=== PATIENT | female | born 1995 | race Caucasian/White ===

== ENCOUNTER 2017-02-20 23:41 | Emergency (ER) | payer SELFPAY ==
[2017-02-20 23:41] VITALS: BMI 34.5
[2017-02-21] MEDS ORDERED: Amoxicillin-Clav 875-125 mg Tab PO STA (01:27)
[2017-02-21] MEDS ORDERED: Amoxicillin-Clav 875-125 mg Tab PO ONE (01:33)
--- NOTE | 2017-02-21 01:33 | C.PDOC ---
History Of Present Illness 21 y/o female presents to the ED for evaluation of right ear pain associated with drainage. Patient states her symptoms initially began as ear pain and itchiness. Patient then stuck a hairpin inside her ear and later developed swelling around her neck and inability to open her jaw at night. Patient denies fever, chills, trauma. Time Seen by Provider: 02/21/17 01:17 Chief Complaint (Nursing): ENT Problem History Per: Patient Onset/Duration Of Symptoms: Days Current Symptoms Are (Timing): Still Present Quality (Ear): Pain W/Touch, Swelling, Discharge Past Medical History Vital Signs: Last Vital Signs Temp 98.2 F 02/21/17 01:34 Pulse 89 02/21/17 01:34 Resp 18 02/21/17 01:34 BP 108/69 02/21/17 01:34 Pulse Ox 99 02/21/17 01:34 - Medical History PMH: Anemia Denies: Diabetes, Hepatitis, HIV, HTN, Seizures, Sexually Transmitted Disease - [facility] Procedures DELIVERY OF PRODUCTS OF CONCEPTION, EXTERNAL APPROACH (10/17/15) GROUP PSYCHOTHERAPY (04/19/16) INDIVIDUAL PSYCHOTHERAPY, SUPPORTIVE (04/19/16) MEDICATION MANAGEMENT (04/19/16) Family History: States: Unknown Family Hx - Social History Hx Tobacco Use: No Hx Alcohol Use: No Hx Substance Use: No - Immunization History Hx Tetanus Toxoid Vaccination: No Hx Influenza Vaccination: No Hx Pneumococcal Vaccination: No Physical Exam - Physical Exam Appears: Non-toxic, No Acute Distress Skin: Normal Color, Warm, Dry Head: Atraumatic, Normacephalic, No Other (trismus ) Eye(s): bilateral: Normal Inspection Ear(s): Left: Normal, Right: Other (TM intact. Edematous drainage in external canal. ) Throat: Normal, No Erythema, No Exudate Neck: Normal ROM, Supple Lymphatic: Adenopathy (occipital ) Extremity: Normal ROM, Capillary Refill (less than 2 seconds ) Neurological/Psych: Oriented x3, Normal Speech, Normal Cognition Gait: Steady ED Course And Treatment O2 Sat by Pulse Oximetry: 100 (on RA) Pulse Ox Interpretation: Normal Progress Note: Patient received Augmentin PO and Motrin PO. On reassessment, patient is resting comfortably, showing no signs of distress and is stable for discharge. Patient is advised to follow up with her PMD within 1-2 days for further evaluation. Disposition - Disposition Referrals: [facility] [Outside] Disposition: HOME/ ROUTINE Disposition Time: 01:30 Condition: GOOD Additional Instructions: Follow up with the medical doctor tomorrow without fail. Return if worsened. Prescriptions: Acetaminophen/Codeine [Tylenol/Codeine 300 MG/30 MG] 1 tab PO Q8 PRN #15 tab PRN Reason: Pain, Severe (8-10) Amoxicillin/Clavulanate [Augmentin 875 MG-125 MG] 1 tab PO BID #14 tab Neomycin/Polymyxin/Hydrocortis [Cortisporin Otic Susp] 3 drop TOP TID #1 bottle Instructions: Otitis Externa (ED) Forms: [employer] (Kiswahili) - Clinical Impression Clinical Impression: Otitis externa, Otitis media - PA / DISH MACHINE OPERATOR / Resident Statement MD/DO has reviewed & agrees with the documentation as recorded. - Scribe Statement The provider has reviewed the documentation as recorded by the Scribe (Mimi De La Paz) All medical record entries made by the Scribe were at my direction and personally dictated by me. I have reviewed the chart and agree that the record accurately reflects my personal performance of the history, physical exam, medical decision making, and the department course for this patient. I have also personally directed, reviewed, and agree with the discharge instructions and disposition.
[2017-02-21 01:35] VITALS: BP 108/69; PULSE 89; RESP 18; TEMP 98.2
[2017-02-21 02:39] VITALS: O2SAT 100
== END 2017-02-21 01:45 | disposition home or self-care (01) ==
LOC: C.ER 23:41
DX: H60.91 Unspecified otitis externa, right ear (principal); H66.91 Otitis media, unspecified, right ear

== ENCOUNTER 2017-06-09 17:15 | Emergency (ER) | payer SELFPAY ==
[2017-06-09 17:16] VITALS: BMI 34.5
[2017-06-09 17:42] VITALS: TEMP 98.4
--- NOTE | 2017-06-09 18:38 | C.PDOC ---
History Of Present Illness 21 y/o female presents to the ER complaining of a fever which has been present for 1 week. Patient reports that she has associated sore throat, body aches, headache, and sweats during the night. Of note, the patient's daughter is in the ER for similar symptoms. Time Seen by Provider: 06/09/17 17:37 Chief Complaint (Nursing): Flu-like Symptoms History Per: Patient History/Exam Limitations: no limitations Onset/Duration Of Symptoms: Days Current Symptoms Are (Timing): Still Present Sick Contacts (Context): Family Member(s) (Daughter) Associated Symptoms: Fever, Sore Throat Past Medical History Reviewed: Historical Data, Nursing Documentation, Vital Signs Vital Signs: Last Vital Signs Temp 98.4 F 06/09/17 19:10 Pulse 98 H 06/09/17 19:10 Resp 18 06/09/17 19:10 BP 100/68 06/09/17 19:10 Pulse Ox 97 06/09/17 21:46 - Medical History PMH: Anemia Denies: Diabetes, Hepatitis, HIV, HTN, Seizures, Sexually Transmitted Disease Surgical History: No Surg Hx - [facility] Procedures DELIVERY OF PRODUCTS OF CONCEPTION, EXTERNAL APPROACH (10/17/15) GROUP PSYCHOTHERAPY (04/19/16) INDIVIDUAL PSYCHOTHERAPY, SUPPORTIVE (04/19/16) MEDICATION MANAGEMENT (04/19/16) Family History: States: No Known Family Hx - Social History Hx Tobacco Use: No Hx Alcohol Use: No Hx Substance Use: No - Immunization History Hx Tetanus Toxoid Vaccination: No Hx Influenza Vaccination: No Hx Pneumococcal Vaccination: No Review Of Systems Except As Marked, All Systems Reviewed And Found Negative. Constitutional: Positive for: Fever, Malaise. Negative for: Chills ENT: Positive for: Throat Pain. Negative for: Nose Congestion Neurological: Positive for: Headache Physical Exam - Physical Exam Appears: Non-toxic, No Acute Distress Skin: Normal Color, Warm, No Rash Head: Atraumatic, Normacephalic Eye(s): bilateral: Normal Inspection, PERRL, EOMI Ear(s): Bilateral: Normal Nose: Normal Oral Mucosa: Moist Throat: Normal, No Erythema, No Exudate Neck: Normal ROM, Supple Chest: Symmetrical Cardiovascular: Rhythm Regular, No Friction Rub, No Murmur Respiratory: Normal Breath Sounds, No Accessory Muscle Use, No Wheezing Gastrointestinal/Abdominal: Soft, No Tenderness Back: Normal Inspection, No CVA Tenderness Extremity: Normal ROM, No Swelling Neurological/Psych: Oriented x3, Normal Speech, Normal Cognition, Normal Motor, Normal Sensation Gait: Steady ED Course And Treatment O2 Sat by Pulse Oximetry: 97 (RA) Pulse Ox Interpretation: Normal Medical Decision Making Medical Decision Making: On re-exam, the patient reports improvement of symptoms. Lungs are CTA, heart is RRR, abdomen is soft, non-tender and patient is tolerating PO well. Follow up with the medical doctor within 1-2 days. return if worsened Disposition - Disposition Referrals: Abiola Oliver MD [Staff Provider] - Disposition: HOME/ ROUTINE Disposition Time: 18:45 Condition: GOOD Additional Instructions: Follow up with the medical doctor within 1-2 days. return if worsened Prescriptions: Ibuprofen [Motrin] 1 tab PO TID PRN #30 tab PRN Reason: Pain Loratadine [Claritin] 10 mg PO DAILY #10 tab predniSONE [Prednisone] 10 mg PO BID #10 tab Instructions: Upper Respiratory Infection (ED) Forms: [employer] (Cuban) - Clinical Impression Clinical Impression: Upper respiratory infection - PA / CLINIC OFFICE COORDINATOR / Resident Statement MD/DO has reviewed & agrees with the documentation as recorded. - Scribe Statement The provider has reviewed the documentation as recorded by the Christopher Figueredo Provider Attestation All medical record entries made by the Landonibradha were at my direction and personally dictated by me. I have reviewed the chart and agree that the record accurately reflects my personal performance of the history, physical exam, medical decision making, and the department course for this patient. I have also personally directed, reviewed, and agree with the discharge instructions and disposition.
[2017-06-09 19:14] VITALS: BP 100/68; PULSE 98; RESP 18
[2017-06-09 21:46] VITALS: O2SAT 97
== END 2017-06-09 19:14 | disposition home or self-care (01) ==
LOC: C.ER 17:15
DX: J06.9 Acute upper respiratory infection, unspecified (principal)

== ENCOUNTER 2018-03-05 14:28 | Emergency (ER) | payer OTHER ==
[2018-03-05 14:28] VITALS: BMI 34.5
[2018-03-05] MEDS ORDERED: Sodium Chloride 0.9% 1,000 ML IV ONE (14:49)
--- NOTE | 2018-03-05 14:53 | C.PDOC ---
History Of Present Illness 22 yo female with PMHx of GERD come in for evaluation of epigastric pain intermittent for past few weeks. Pt reports, pain worse today AM , localized over epigastric, RUQ pain, (+) nausea. Pt reports, pain is worse after foot intake. Otherwise, pt denies fever, chills, CP, SOB, dyspnea, diaphoresis, palpitation, cough, V/D, back pain, UTI sx, melena, hematemesis. Ambulate to Ed for evaluation, not in any apparent distress. Time Seen by Provider: 03/05/18 14:39 Chief Complaint (Nursing): Abdominal Pain History Per: Patient Past Medical History Reviewed: Historical Data, Nursing Documentation, Vital Signs Vital Signs: Last Vital Signs Temp 98 F 03/05/18 14:33 Pulse 77 03/05/18 14:33 Resp 18 03/05/18 14:33 BP 121/77 03/05/18 14:33 Pulse Ox 99 03/05/18 14:33 - Medical History PMH: Anemia Denies: Diabetes, Hepatitis, HIV, HTN, Seizures, Sexually Transmitted Disease Surgical History: No Surg Hx - [facility] Procedures DELIVERY OF PRODUCTS OF CONCEPTION, EXTERNAL APPROACH (10/17/15) GROUP PSYCHOTHERAPY (04/19/16) INDIVIDUAL PSYCHOTHERAPY, SUPPORTIVE (04/19/16) MEDICATION MANAGEMENT (04/19/16) Family History: States: Unknown Family Hx - Social History Hx Tobacco Use: No Hx Alcohol Use: No Hx Substance Use: No - Immunization History Hx Tetanus Toxoid Vaccination: No Hx Influenza Vaccination: No Hx Pneumococcal Vaccination: No Review Of Systems Except As Marked, All Systems Reviewed And Found Negative. Constitutional: Negative for: Fever, Chills Eyes: Negative for: Vision Change ENT: Negative for: Ear Discharge, Nose Discharge, Nose Congestion, Throat Pain, Throat Swelling Cardiovascular: Negative for: Chest Pain, Palpitations, Orthopnea, Edema Respiratory: Negative for: Cough, Shortness of Breath Gastrointestinal: Positive for: Nausea, Abdominal Pain. Negative for: Vomiting, Diarrhea, Constipation, Melena, Hematochezia, Hematemesis Genitourinary: Negative for: Dysuria Musculoskeletal: Negative for: Neck Pain, Back Pain Skin: Negative for: Rash Neurological: Negative for: Weakness, Numbness, Altered Mental Status, Headache, Dizziness Physical Exam - Physical Exam Appears: Well, Non-toxic, No Acute Distress Skin: Normal Color, Warm, Dry, No Rash Head: Normacephalic Eye(s): bilateral: PERRL Ear(s): Bilateral: Normal Nose: No Flaring, No Discharge Oral Mucosa: Moist Throat: No Erythema, No Drooling Neck: Trachea Midline, Supple Cardiovascular: Rhythm Regular, No Murmur, No JVD Respiratory: No Decreased Breath Sounds, No Accessory Muscle Use, No Stridor, No Wheezing Gastrointestinal/Abdominal: Soft, Tenderness (mod RUQ), No Organomegaly, No Distention, No Guarding, No Rebound Back: No CVA Tenderness Extremity: Normal ROM, No Deformity, No Swelling Neurological/Psych: Oriented x3, Normal Speech ED Course And Treatment - Laboratory Results Result Diagrams: 03/05/18 15:14 03/05/18 15:14 Lab Interpretation: No Acute Changes ECG: Interpreted By Me, Viewed By Me ECG Rhythm: Sinus Rhythm Interpretation Of ECG: SR@79/min, NAD, no acute T wave or ST-T changes O2 Sat by Pulse Oximetry: 99 Pulse Ox Interpretation: Normal - CT Scan/US Gallbladder US Other Rad Studies (CT/US): Radiology Report Reviewed CT/US Interpretation: Dictator : Gabbie West MD. Audio Visual Engineer : Intelligence Officer : Gabbie West MD. Approver2 : Report Date : 03/05/2018 15:49:01. My Comment : . Date of service: 03/05/2018. HISTORY: RUQ pain. COMPARISON: None available. TECHNIQUE: Sonographic evaluation of the right upper quadrant of the abdomen. FINDINGS: LIVER: Measures 14.7 cm in length. Echogenic liver may be seen in setting of hepatic parenchymal disease or fatty infiltration. No focal hepatic mass identified. The main portal vein appears patent with normal directional flow. No intrahepatic bile duct dilatation. GALLBLADDER: Partially contracted gallbladder. No gallstones. No gallbladder wall thickening or pericholecystic edema. Negative sonographic Joaquin's sign as assessed by the coke still cleaner. COMMON BILE DUCT: Measures 4 mm. PANCREAS: Not well-visualized. RIGHT KIDNEY: Measures 11.5 x 4.7 x 5.3 cm. No obstructing calculus or hydronephrosis identified. AORTA: Limited visualization appears grossly un remarkable. IVC: Limited visualization appears grossly unremarkable. OTHER FINDINGS: None . IMPRESSION: Echogenic liver may be seen in setting of hepatic parenchymal disease or fatty infiltration. CT A/P Other Rad Studies (CT/US): Radiology Report Reviewed CT/US Interpretation: Creator : Gabbie West MD. Dictator : Gabbie West MD. Audio Visual Engineer : Intelligence Officer : Gabbie West MD. Approver2 : Report Date : 03/05/2018 17:30:55. My Comment : . Date of service: 03/05/2018. PROCEDURE: CT Abdomen and Pelvis with contrast. HISTORY: Right flank pain. COMPARISON: Right upper quadrant ultrasound performed 03/05/18. TECHNIQUE: Contrast dose: 100 cc Visipaque 320 IV. Radiation dose: Total exam DLP = 935.87 mGy-cm. This CT exam was performed using one or more of the following dose reduction techniques: Automated exposure control, adjustment of the mA and/or kV according to patient size, and/or use of iterative reconstruction technique. FINDINGS: LOWER THORAX: No visible consolidation, pleural effusion, or pneumothorax. LIVER: Unremarkable. GALLBLADDER AND BILE DUCTS: Unremarkable. PANCREAS: Unremarkable. SPLEEN: Unremarkable. ADRENALS: Unremarkable. KIDNEYS AND URETERS: The kidneys enhance symmetrically. No hydronephrosis or obstructing calculus identified. VASCULATURE: No aortic aneurysm. BOWEL: Stomach is nondistended. Lack of oral contrast limits evaluation for bowel pathology. Bowel loops appear within normal limits of caliber without evidence of obstruction. APPENDIX: The appendix appears within normal limits of caliber. No secondary signs of acute appendicitis. PERITONEUM: No significant free fluid. No definite free air. LYMPH NODES: No bulky adenopathy identified. BLADDER: Unremarkable. REPRODUCTIVE: Uterus is present. Possible 2.2 cm right ovarian cyst. BONES: No acute osseous abnormality is detected. OTHER FINDINGS: None. IMPRESSION: Possible 2.2 cm right ovarian cyst. Suggest pelvic ultrasound for further evaluation.. Progress Note: Pt was OBS in ED for 3 hours and reports mnoderate improvement in sx. On re-evaluation, pt is afebrile, hemodynamicaly stable. Non-toxic, tolerate Po well in ED. neck: Supple, (-) JVD. ENT: no acute findings. Lungs: CTA B/L, BS equal B/L. Abd: benign, (-) guarding, (-) rebound, (-) localized tenderness. back: (-) CVA tenderness. Neuorlogicaly intact. Blood work review and appears without acute abnormalities, LFT- normal. UA- vaibhav, preg (-). Gallbladder US- no acute abnoramlities. CT A/P w/IV contrast- no acute findings, accidental findings of possible small Right ovarian cyst. EKG- normal. Pt has clinical findings c/w RUQ/epigastric pain, resolved. Pt advised and ref. to f/u with PMD, GI in 2-3 days for re-eavl. return to ED if any worsening or new changes. Disposition Counseled Patient/Family Regarding: Studies Performed, Diagnosis, Need For Followup, Rx Given - Disposition Referrals: [facility] [Outside] [facility]Outside] [facility] [Outside] Bhupendra Lao [Staff Provider] - Disposition: HOME/ ROUTINE Disposition Time: 17:28 Condition: STABLE Additional Instructions: Encourage fluids Diet restriction for 1-2 weeks, avoid fat, spicy, greasy food Take medication as prescribed Follow up with PMD, GI and [facility] for further evaluation and treatment return to ED if any worsening or new changes. Prescriptions: Ondansetron HCl [Zofran] 4 mg PO BID #10 tablet Pantoprazole Sodium [Protonix] 40 mg PO DAILY #14 ect Instructions: Dyspepsia, Ovarian Cyst (DC) Forms: [employer] (Irish) - Clinical Impression Clinical Impression: Epigastric pain, Ovarian cyst
[2018-03-05] MEDS ORDERED: Sodium Chloride 0.9% 1,000 ML ONE (14:59)
[2018-03-05 15:18] LABS: BASO # 0.1 K/uL (0.0-0.2); BASO % 0.8 % (0.0-2.0); EOS # 0.1 K/uL (0.0-0.7); EOS % 1.5 % (0.0-4.0); HEMOGLOBIN 11.4 g/dL (11.0-16.0); MEAN CELL VOLUME 79.2 fL (81.0-99.0); MEAN CORPUSCULAR HGB CONC 32.8 g/dL (33.0-37.0); MEAN PLATELET VOLUME 8.3 fL (7.2-11.7); MONO # 0.5 K/uL (0.0-0.8); MONO % 6.4 % (0.0-10.0); NEUT # 4.9 K/uL (1.8-7.0); NEUT % 64.3 % (50.0-75.0); RBC 4.4 Mil/uL (3.80-5.20); RED CELL DISTRIBUTION WIDTH 15.1 % (11.5-14.5); WHITE BLOOD COUNT 7.5 K/uL (4.8-10.8)
[2018-03-05 15:25] LABS: INR 1.1; PROTHROMBIN TIME 12.5 SECONDS (9.7-12.2)
[2018-03-05 15:31] LABS: ALB/GLOB RATIO 1.5 (1.0-2.1); ALBUMIN 4.1 g/dL (3.5-5.0); ALT/SGPT 34 U/L (9-52); AST/SGOT 18 U/L (14-36); BLOOD UREA NITROGEN 17 mg/dL (7-17); GFR NON-AFRICAN AMERICAN > 60; LIPASE 99 U/L (23-300)
[2018-03-05 15:32] LABS: SQUAMOUS EPITHIAL 7 /hpf (0-5); URINE BILIRUBIN NEGATIVE (NEGATIVE); URINE BLOOD 1+ (NEGATIVE); URINE CLARITY Hazy (Clear); URINE COLOR Yellow (YELLOW); URINE GLUCOSE (UA) NORMAL (Normal); URINE LEUKOCYTE ESTERASE NEG Leu/uL (Negative); URINE PROTEIN NEGATIVE (NEGATIVE); URINE UROBILINOGEN NORMAL mg/dL (0.2-1.0)
--- NOTE | 2018-03-05 15:50 | US ---
Date of service: 03/05/2018 HISTORY: RUQ pain COMPARISON: None available TECHNIQUE: Sonographic evaluation of the right upper quadrant of the abdomen. FINDINGS: LIVER: Measures 14.7 cm in length. Echogenic liver may be seen in setting of hepatic parenchymal disease or fatty infiltration. No focal hepatic mass identified. The main portal vein appears patent with normal directional flow. No intrahepatic bile duct dilatation. GALLBLADDER: Partially contracted gallbladder. No gallstones. No gallbladder wall thickening or pericholecystic edema. Negative sonographic Joaquin's sign as assessed by the facility manager. COMMON BILE DUCT: Measures 4 mm. PANCREAS: Not well-visualized. RIGHT KIDNEY: Measures 11.5 x 4.7 x 5.3 cm. No obstructing calculus or hydronephrosis identified. AORTA: Limited visualization appears grossly unremarkable. IVC: Limited visualization appears grossly unremarkable. OTHER FINDINGS: None . IMPRESSION: Echogenic liver may be seen in setting of hepatic parenchymal disease or fatty infiltration.
[2018-03-05] MEDS ORDERED: Iodixanol 320 MG/ML 100 ML BOTTLE IV ONE (16:47)
--- NOTE | 2018-03-05 17:32 | CT ---
Date of service: 03/05/2018 PROCEDURE: CT Abdomen and Pelvis with contrast HISTORY: Right flank pain COMPARISON: Right upper quadrant ultrasound performed 03/05/18 TECHNIQUE: Contrast dose: 100 cc Visipaque 320 IV Radiation dose: Total exam DLP = 935.87 mGy-cm. This CT exam was performed using one or more of the following dose reduction techniques: Automated exposure control, adjustment of the mA and/or kV according to patient size, and/or use of iterative reconstruction technique. FINDINGS: LOWER THORAX: No visible consolidation, pleural effusion, or pneumothorax. LIVER: Unremarkable. GALLBLADDER AND BILE DUCTS: Unremarkable. PANCREAS: Unremarkable. SPLEEN: Unremarkable. ADRENALS: Unremarkable. KIDNEYS AND URETERS: The kidneys enhance symmetrically. No hydronephrosis or obstructing calculus identified. VASCULATURE: No aortic aneurysm. BOWEL: Stomach is nondistended. Lack of oral contrast limits evaluation for bowel pathology. Bowel loops appear within normal limits of caliber without evidence of obstruction. APPENDIX: The appendix appears within normal limits of caliber. No secondary signs of acute appendicitis. PERITONEUM: No significant free fluid. No definite free air. LYMPH NODES: No bulky adenopathy identified. BLADDER: Unremarkable. REPRODUCTIVE: Uterus is present. Possible 2.2 cm right ovarian cyst. BONES: No acute osseous abnormality is detected. OTHER FINDINGS: None. IMPRESSION: Possible 2.2 cm right ovarian cyst. Suggest pelvic ultrasound for further evaluation.
[2018-03-05 18:31] VITALS: BP 104/68; PULSE 68; RESP 20; TEMP 98.1; O2SAT 100
--- NOTE | 2018-03-06 13:19 | CARD ---
APPROVED REPORT Date of service: 03/05/2018 EKG Measurement Heart [id number] <Conclusion> Normal sinus rhythm Normal ECG
== END 2018-03-05 18:34 | disposition home or self-care (01) ==
LOC: C.ER 14:28
DX: N83.201 Unspecified ovarian cyst, right side (principal); R10.13 Epigastric pain
CPT/HCPCS: 36415; 74177; 76705; 80053; 81001; 83690; 85025; 85610; 85730; 93005; 96361; 96365; 96375; 99285; C9113; J1885; J2405; J2765; J7030; Q9967

== ENCOUNTER 2018-05-04 18:55 | Emergency (ER) | payer OTHER ==
[2018-05-04 19:02] VITALS: BMI 37.0
[2018-05-04 19:06] VITALS: BP 101/67; PULSE 75; TEMP 98.3; O2SAT 99
[2018-05-04 20:19] LABS: SQUAMOUS EPITHIAL 8 /hpf (0-5); URINE BACTERIA RARE (<OCC); URINE BILIRUBIN NEGATIVE (NEGATIVE); URINE BLOOD 1+ (NEGATIVE); URINE CLARITY Clear (Clear); URINE COLOR Yellow (YELLOW); URINE GLUCOSE (UA) NORMAL (Normal); URINE LEUKOCYTE ESTERASE NEG Leu/uL (Negative); URINE PROTEIN NEGATIVE (NEGATIVE); URINE UROBILINOGEN NORMAL mg/dL (0.2-1.0)
--- NOTE | 2018-05-04 21:12 | C.PDOC ---
History Of Present Illness 22 y/o female pt presents to the ER c/o pain to the right lower back to right groin and right thigh after standing for long periods of time at work. Pt took Tylenol extra strength with relief but there is still lingering pain which prompt her to come to the ER. Pt denies trauma, weakness, numbness, urinary frequency, dysuria, hematuria, incontinence of bowel or bladder or fever. Time Seen by Provider: 05/04/18 19:28 Chief Complaint (Nursing): Lower Extremity Problem/Injury History Per: Patient History/Exam Limitations: no limitations Onset/Duration Of Symptoms: Hrs Current Symptoms Are (Timing): Still Present Past Medical History Reviewed: Historical Data, Nursing Documentation, Vital Signs Vital Signs: Last Vital Signs Temp 98.3 F 05/04/18 19:05 Pulse 75 05/04/18 19:05 Resp 18 05/04/18 19:05 BP 101/67 05/04/18 19:05 Pulse Ox 99 05/04/18 19:05 - Medical History PMH: Anemia - [facility] Procedures DELIVERY OF PRODUCTS OF CONCEPTION, EXTERNAL APPROACH (10/17/15) GROUP PSYCHOTHERAPY (04/19/16) INDIVIDUAL PSYCHOTHERAPY, SUPPORTIVE (04/19/16) MEDICATION MANAGEMENT (04/19/16) Family History: States: Unknown Family Hx - Social History Hx Tobacco Use: No Hx Alcohol Use: No Hx Substance Use: No - Immunization History Hx Tetanus Toxoid Vaccination: No Hx Influenza Vaccination: No Hx Pneumococcal Vaccination: No Review Of Systems Except As Marked, All Systems Reviewed And Found Negative. Constitutional: Negative for: Weakness, Other (trauma) Genitourinary: Negative for: Dysuria, Frequency, Hematuria Musculoskeletal: Positive for: Back Pain (lower), Other (right groin and right thigh radiating from back pain ) Neurological: Negative for: Numbness Physical Exam - Physical Exam Appears: Well, Non-toxic, No Acute Distress Skin: Normal Color, Warm, Dry Head: Normacephalic Cardiovascular: Rhythm Regular Respiratory: Normal Breath Sounds Gastrointestinal/Abdominal: Soft, Tenderness (right inguinal suprapubic ), No Distention, No Guarding, No Rebound, Other (obese abdomen) Back: No CVA Tenderness, Straight Leg Raising (+ for right leg ), Other (right lumbar tenderness) Extremity: Normal ROM (x4), No Calf Tenderness, Other (full ambulatory) Neurological/Psych: Oriented x3, Normal Speech, Normal Cognition, Normal Motor, Normal Sensation Gait: Steady ED Course And Treatment O2 Sat by Pulse Oximetry: 99 (RA) Pulse Ox Interpretation: Normal Progress Note: Plans: -- motrin. -- UA. Reassess: On reassessment, patient is resting comfortably, with improvement of back pain. Patient remains afebrile, with no bony tenderness, extremity numbness or weakness, or abdominal pain. Patient is ambulatory in the emergency department with no signs of discomfort. Patient was advised to follow up with physician/clinic in 1-2 days. Disposition Counseled Patient/Family Regarding: Diagnosis, Need For Followup, Rx Given - Disposition Referrals: [facility] [Outside] Disposition: HOME/ ROUTINE Disposition Time: 21:10 Condition: STABLE Additional Instructions: Take medications as directed Follow up with PMD or in clinic Return to ER if worse Prescriptions: Ibuprofen [Motrin] 600 mg PO Q6H #24 tab Instructions: Low Back Pain (DC) Forms: [employer] (Albanian) - Clinical Impression Clinical Impression: Low back pain - PA / ZONE MANAGER / Resident Statement MD/ has reviewed & agrees with the documentation as recorded. - Scribe Statement The provider has reviewed the documentation as recorded by the Christopher Stark Do All medical record entries made by the Scribe were at my direction and personally dictated by me. I have reviewed the chart and agree that the record accurately reflects my personal performance of the history, physical exam, medical decision making, and the department course for this patient. I have also personally directed, reviewed, and agree with the discharge instructions and disposition.
[2018-05-04 21:27] VITALS: RESP 20
== END 2018-05-04 21:26 | disposition home or self-care (01) ==
LOC: C.ER 18:55
DX: M54.5 Low back pain (principal)